=== PATIENT | female | born 2000 | race Caucasian/White ===

== ENCOUNTER → 2021-01-25 | Outpatient (CLI) | payer BC ==
[2021-01-26 00:51] LABS: Basophils # (A) 0.04 X 10*3/uL (0.00-0.10); Basophils % (A) 0.7 %; Eosinophils # (A) 0.03 X 10*3/uL (0.04-0.35); Eosinophils % (A) 0.5 %; HCT 41.2 % (37.2-46.3); Lymphocytes # (A) 1.44 X 10*3/uL (0.90-5.00); Lymphocytes % (A) 25.3 %; MCHC 31.6 g/dL (32.0-37.0); MCV 94.9 fL (80.0-97.0); Mean Platelet Volume 10.1 fL (9.5-12.2); Monocytes # (A) 0.72 X 10*3/uL (0.20-1.00); Monocytes % (A) 12.7 %; Neutrophils # (A) 3.45 X 10*3/uL (1.80-7.70); Neutrophils % (A) 60.6 %; Platelet Count 284 X 10*3/uL (140-440); RBC 4.34 X 10*6/uL (4.10-5.20); RDW 13.2 % (11.5-14.5); WBC 5.69 X 10*3/uL (4.50-10.00)
[2021-01-26 02:42] LABS: Cyclic Citrull Pep IgG Unit <0.5 U/mL; Cyclic Citrullinated Pep IgG NEGATIVE (NEGATIVE); Erythrocyte Sedimentation Rate 6 mm/Hr (0-20)
[2021-01-26 08:56] LABS: Angiotensin-1 Converting Enz. 28 U/L (8-52)
[2021-01-26 10:45] LABS: HLA B27 NEGATIVE
[2021-01-26 14:00] LABS: Vitamin D, 1, 25-Dihydroxy 93 pg/mL (20 - 79)
[2021-01-26 17:15] LABS: ALT 16 U/L (8-44); AST 28 U/L (13-35); African American GFR (CKD) 107.4 (60.0-200.0); C Reactive Protein <0.4 mg/dL (0.0-0.8); Calcium 9.3 mg/dL (8.7-10.3); Carbon Dioxide 22.4 mmol/L (21.6-31.8); Chloride 108 mmol/L (96-109); Glucose 102 mg/dL (70-110); Non-African American GFR(CKD) 92.7 (60.0-200.0); Potassium 3.6 mmol/L (3.5-5.5); Rheumatoid Factor, Qnt <4 IU/mL (0-15); Sodium 144 mmol/L (135-145)
[2021-01-26 17:22] LABS: Creatine Kinase 167 U/L (26-186); Uric Acid 6.7 mg/dL (2.9-7.7)
== END | disposition home or self-care (01) ==
LOC: LABWHC1 15:58
PROVIDERS: ATTEND Orthopaedic Surgery
DX: M25.462 Effusion, left knee (principal); M62.552 Muscle wasting and atrophy, not elsewhere classified, left thigh; Z87.898 Personal history of other specified conditions
CPT/HCPCS: 36415; 80048; 82164; 82306; 82550; 82652; 83520; 84439; 84443; 84450; 84460; 84550; 85025; 85652; 86038; 86140; 86200; 86431; 86812